=== PATIENT | female | born 1980 | race Caucasian/White ===

== ENCOUNTER 2017-06-10 19:24 | Inpatient (IN) | payer BC, OTHER, MEDICAID ==
[~2017-06-10] VITALS: Ht 170.2 cm; Wt 75.3 kg
[2017-06-10 19:28] VITALS: BP 170/92
[2017-06-10] MEDS ORDERED: SYNTHROID100 MC1 PO (19:33)
[2017-06-10] MEDS ORDERED: LISINOPRIL10 MG PO (19:33)
[2017-06-10 19:43] VITALS: BP 170/92
[2017-06-10 19:56] LABS: ABSOLUTE LYMPHOCYTES 1.9 thou/uL (0.8-5.3); ABSOLUTE MONOCYTES 0.6 thou/uL (0.0-1.2); ABSOLUTE NEUTROPHILS 5.7 thou/uL (1.6-8.1); BASOPHILS 0.5 %; EOSINOPHILS 0.1 %; HEMOGLOBIN 12.8 gm/dL (12.0-15.0); LYMPHOCYTES 23.1 %; MCH 30.8 pg (26.0-34.0); MCHC 33.6 g/dL (28.0-37.0); MCV 91.6 fL (80.0-100.0); MONOCYTES 6.8 %; MPV 10.1 fl. (7.2-11.1); NUCLEATED RBCS 0 /100WBC; PLATELET COUNT* 199 thou/uL (150-400); POLYS 69.5 %; RBC 4.15 mil/uL (4.20-5.00); RDW-CV 12.7 % (10.5-14.5); URINE BLOOD 3+ (Negative); URINE CLARITY CLEAR; URINE COLOR ORANGE; URINE LEUKOCYTES-REFLEX NEGATIVE (Negative); WBC 8.1 thou/uL (4.0-11.0)
[2017-06-10 20:04] LABS: CALCIUM 8.3 mg/dL (8.5-10.1); CREATININE 1.2 mg/dL (0.6-1.3); URINE NITRITE-REFLEX POSITIVE (Negative)
[2017-06-10 20:07] LABS: POTASSIUM 2.9 mmol/L (3.5-5.1); SSA (PROTEIN CONFIRMATORY) NEGATIVE (Negative); URINE SPECIFIC GRAVITY 1.023 (1.005-1.030)
[2017-06-10 20:08] LABS: ACETEST (KETONE CONFIRMATORY) Negative (Negative); ICTOTEST (BILI CONFIRMATORY) Negative (Negative); URINE REDUCING SUBSTANCE NEGATIVE (Negative)
[2017-06-10 20:09] LABS: ALBUMIN 3.9 g/dL (3.4-5.0); TOTAL BILIRUBIN 0.5 mg/dL (<0.1-1.0); TOTAL PROTEIN 6.8 g/dL (6.4-8.2)
[2017-06-10 20:10] LABS: CALCIUM OXALATE 0-3 Few /LPF (None Seen); CASTS None Seen /LPF (None Seen); MUCUS 4-6 Moderate strn/LPF (None Seen); SQUAMOUS >10 Many /LPF (0-3); URINE RBC >20 Many /HPF (0-2)
[2017-06-10 20:11] LABS: BACTERIA-REFLEX 1-9 Few /HPF (None Seen)
[2017-06-10 21:25] LABS: URINE BILIRUBIN NEGATIVE (Negative); URINE BLOOD 2+ (Negative); URINE CLARITY CLEAR; URINE COLOR YELLOW; URINE GLUCOSE-RANDOM NEGATIVE (Negative); URINE KETONES TRACE (Negative); URINE LEUKOCYTES-REFLEX TRACE (Negative); URINE PROTEIN TRACE (Negative)
[2017-06-10 21:26] LABS: URINE NITRITE-REFLEX POSITIVE (Negative)
[2017-06-10 21:37] LABS: BACTERIA-REFLEX >30 Many /HPF (None Seen); CASTS None Seen /LPF (None Seen); MUCUS 0-3 Light strn/LPF (None Seen); SQUAMOUS 0-3 Few /LPF (0-3); TRANSITIONAL EPITHEL CELL 0-3 Few /LPF (None Seen); URINE WBC-REFLEX 6-15 Few /HPF (0-5); WBC CLUMPS Few (None Seen)
[2017-06-10 21:44] LABS: CRYSTALS None Seen /LPF (None Seen)
[2017-06-10 22:30] VITALS: BP 163/98
[2017-06-10 23:13] VITALS: BP 158/93
[2017-06-11 08:25] LABS: URINE BILIRUBIN 2+ (Negative)
[2017-06-11 08:54] VITALS: BP 141/92
[2017-06-11 12:22] VITALS: BP 149/98
[2017-06-11 15:24] VITALS: BP 154/85
[2017-06-11 15:30] VITALS: BP 126/83
[2017-06-11 18:27] VITALS: BP 126/83
[2017-06-11] MEDS ORDERED: CIPRO500 MG PO (18:33)
[2017-06-11] MEDS ORDERED: HYDROCODONE-AP1 EAC6 PO (18:34)
[2017-06-11] MEDS ORDERED: LEVSIN-SL0.125 MG SUBLING (18:35)
[2017-06-11] MEDS ORDERED: PHENAZOPYRIDIN200 M2 PO (18:35)
--- NOTE | 2017-06-15 15:49 | OP ---
[address] [address] OPERATIVE REPORT Name: ANTHONY HUGHES Room: [address] IN M.R.#: [id number] Admission: 06/10/17 Attend Phys: Thien Richmond, Discharge: 06/11/17 Date of : 84 Report #: [id number] THIS REPORT FOR: //name// CC: [facility] physician/PCP Thien Richmond DATE OF SERVICE: 06/11/2017 PREOPERATIVE DIAGNOSIS: Right ureterovesical junction stone. POSTOPERATIVE DIAGNOSIS: Right ureterovesical junction stone. PROCEDURES: Cystourethroscopy, right retrograde pyelogram, right ureteroscopy, laser lithotripsy, basket extraction of stone fragments and right ureteral stent placement (6-Afghan x 26 cm). SURGEON: Queta Hernandez M.D. ANESTHESIA: General. ESTIMATED BLOOD LOSS: None. COMPLICATIONS: None. SPECIMEN: Stone. INDICATION FOR PROCEDURE: The patient is a 37-year-old female with history of stones, who presented with right flank pain. CT scan revealed a 6 mm right UVJ stone. UA was also questionable for UTI. Initially, we had discussed just stenting her, but a prelim culture came back no growth and therefore, we discussed if I did not see any purulence. Given the very distal nature of the stone, I would attempt to treat it if safe. Risks of procedure discussed including but not limited to infection, bleeding, injury to the urethra, bladder, ureters, need for secondary procedures, stent pain, cardiopulmonary complications. She voiced understanding and wished to proceed. DESCRIPTION OF PROCEDURE: After informed consent was obtained, the patient was taken back to the operating suite and placed supine. After induction of general anesthesia, she was placed in dorsal lithotomy position, genitalia prepped and draped in standard fashion. Rigid cystoscopy was performed. Bladder mucosa was normal. She had a mild cystocele. Right ureteral orifice was cannulated with a cone tipped catheter. A retrograde was performed and the radiopaque stone was seen just above the UVJ and showed a filling defect with proximal hydroureteronephrosis behind this. Sensor wire was threaded into the ureter past the stone without difficulty and [place] [address] OPERATIVE REPORT Name: ANTHONY HUGHES Room: [address] IN [facility]#: [id number] Admission: 06/10/17 Attend Phys: Thien Richmond, Discharge: 06/11/17 Date of : 84 Report #: [id number] ureteroscope was then advanced into the UO and the stone was easily encountered just above the UVJ. There was some significant edema surrounding the stone. The holmium laser was used to break up the stone into small fragments. These were basketed and deposited in the bladder with a 0 tip nitinol basket. Once all stone fragments had been cleared, the scope was backed out using dual lumen catheter. Retrograde was again performed. There was no extravasation. There was significant hydroureteronephrosis above the level of the stone with some tortuosity of the proximal ureter which straightened out with the wire. The wire was backloaded through the cystoscope and a 6-Afghan x 26-cm double-J stent was threaded over the wire. Good curl was seen within the renal pelvis and good curl was seen within the bladder. All stone fragments were drained out of the bladder. Scope was removed. A 5 mL of lidocaine jelly were placed per urethra and a 60 mg B and O suppository was placed per rectum for postoperative discomfort. She was awoken, extubated and taken to recovery in satisfactory condition. She will be admitted back to the floor and can probably be dismissed home later this afternoon if she remains afebrile and her pain is under control. Probably we will consider sending her home on some empiric Cipro until her final culture results are back. Of note, there was no purulence at all behind the stone, everything was clear. <ELECTRONICALLY SIGNED> By: Queta Hernandez MD 06/15/17 1549 1426 1444Queta Hernandez MD /nt
[2017-06-21 18:07] LABS: STONE CA OXALATE DIHYDRATE 30 % (()); STONE CA OXALATE MONOHYDRATE 60 % (()); STONE CALCIUM PHOSPHATE 10 % (()); STONE COLOR Tan (())
--- NOTE | 2017-07-21 12:45 | D ---
[address] [address] DISCHARGE SUMMARY Name: ANTHONY HUGHES Room: [address] IN M.R.#: [id number] Admission: 06/10/17 Attend Phys: Thien Richmond, Discharge: 06/11/17 Date of : 84 Report #: [id number] THIS REPORT FOR: //name// CC: Tera Richmond DATE OF SERVICE: 06/11/2017 HISTORY OF PRESENT ILLNESS: This pleasant patient was admitted to the hospital with intractable pain due to ureteral colic with vomiting and was found to have a possible UTI. She was seen in consultation by Urology and underwent stent placement as well as lithotripsy and laser stone extraction with basket. Urine was cultured and she was sent back to the floor in stable condition, was able to eat and her pain was well controlled postoperatively. She was discharged home to see Urology this next week. We will continue Cipro 500 mg b.i.d. for 10 days. We will see her primary care doctor in one week. DISCHARGE DIET: Heart healthy, 2 gram sodium. MEDICATIONS: For discharge meds, please see medication reconciliation. CONSULTATIONS: With Urology. discharge DIAGNOSIS 1. Intractable pain secondary to ureteral colic 2. UTI <ELECTRONICALLY SIGNED> By: Thien Richmond MD 07/21/17 1245 2024 2045ThMD shelly Fan
== END 2017-06-11 19:00 | disposition home or self-care (01) | DRG 669 ==
LOC: M.ERS 19:24 → M.TBA-ER 21:12 → M.ERS 21:12 → M.ORTHSURG 21:39 → M.TBA-ER 21:39 → M.ORTHSURG 23:01
PROVIDERS: Nurse Practitioner Family; Urology; ADMIT Family Medicine
DX: N20.1 Calculus of ureter (principal); N39.0 Urinary tract infection, site not specified; I10 Essential (primary) hypertension; E87.6 Hypokalemia; E03.9 Hypothyroidism, unspecified; Z98.891 History of uterine scar from previous surgery; Z98.84 Bariatric surgery status; Z90.49 Acquired absence of other specified parts of digestive tract; Z79.899 Other long term (current) drug therapy; Z88.0 Allergy status to penicillin

== ENCOUNTER 2017-07-11 22:36 | Emergency (ER) | payer BC, OTHER, MEDICAID ==
[~2017-07-11] VITALS: Ht 170.2 cm; Wt 77.1 kg
[~2017-07-11 22:36] MED LIST: CIPRO500 MG PO; HYDROCODONE-AP1 EAC6 PO; LEVSIN-SL0.125 MG SUBLING; LISINOPRIL10 MG PO; PHENAZOPYRIDIN200 M2 PO; SYNTHROID100 MC1 PO
[2017-07-11 23:13] LABS: URINE BILIRUBIN NEGATIVE (Negative); URINE BLOOD 2+ (Negative); URINE CLARITY CLEAR; URINE COLOR YELLOW; URINE GLUCOSE-RANDOM NEGATIVE (Negative); URINE KETONES NEGATIVE (Negative); URINE NITRITE-REFLEX NEGATIVE (Negative); URINE PROTEIN 2+ (Negative)
[2017-07-11 23:15] LABS: URINE LEUKOCYTES-REFLEX 2+ (Negative)
[2017-07-11 23:42] LABS: INFLUENZA A ANTIGEN None Detected (None Detect); INFLUENZA B ANTIGEN None Detected (None Detect)
[2017-07-11 23:48] LABS: SQUAMOUS 0-3 Few /LPF (0-3)
[2017-07-11 23:50] LABS: CASTS None Seen /LPF (None Seen); CRYSTALS None Seen /LPF (None Seen); URINE WBC-REFLEX >25 Many /HPF (0-5)
[2017-07-11] MEDS ORDERED: ZOFRAN4 MG PO (23:55)
[2017-07-11] MEDS ORDERED: CIPROFLOXACIN500 M1 PO (23:55)
[2017-07-11] MEDS ORDERED: HYDROCODON-ACE1 EAC7 PO (23:55)
[2017-07-12] VITALS: BP 121/76
== END 2017-07-12 00:02 | disposition home or self-care (01) ==
LOC: M.ERS 22:36
PROVIDERS: Emergency Medicine
DX: N39.0 Urinary tract infection, site not specified (principal); I10 Essential (primary) hypertension; E03.9 Hypothyroidism, unspecified; Z88.0 Allergy status to penicillin

== ENCOUNTER 2017-10-31 11:31 | Inpatient (IN) | payer BC, OTHER, MEDICAID ==
[~2017-10-31] VITALS: Ht 170.2 cm; Wt 79.1 kg
[~2017-10-31 11:31] MED LIST changes: +CIPROFLOXACIN500 M1 PO; +HYDROCODON-ACE1 EAC7 PO; +ZOFRAN4 MG PO
[2017-10-31 11:44] VITALS: BP 157/102
[2017-10-31] MEDS ORDERED: CYMBALTA60 MG PO (11:46)
[2017-10-31] MEDS ORDERED: IBUPROFEN 800800 M1 PO (11:47)
[2017-10-31 12:17] LABS: URINE BILIRUBIN NEGATIVE (Negative); URINE BLOOD 2+ (Negative); URINE CLARITY CLEAR; URINE COLOR YELLOW; URINE GLUCOSE-RANDOM NEGATIVE (Negative); URINE KETONES NEGATIVE (Negative); URINE LEUKOCYTES-REFLEX NEGATIVE (Negative); URINE NITRITE-REFLEX NEGATIVE (Negative); URINE PROTEIN 1+ (Negative); URINE SPECIFIC GRAVITY 1.025 (1.005-1.030); URINE UROBILINOGEN 0.2 E.U./dl (0.2-1.0)
[2017-10-31 12:29] LABS: SQUAMOUS >10 Many /LPF (0-3); URINE RBC 3-10 Few /HPF (0-2); URINE WBC-REFLEX 0-5 Rare /HPF (0-5)
[2017-10-31 12:34] LABS: CASTS None Seen /LPF (None Seen); CRYSTALS None Seen /LPF (None Seen); MUCUS 0-3 Light strn/LPF (None Seen)
[2017-10-31 15:00] LABS: ABSOLUTE LYMPHOCYTES 1.3 thou/uL (0.8-5.3); ABSOLUTE MONOCYTES 0.4 thou/uL (0.0-1.2); ABSOLUTE NEUTROPHILS 4.9 thou/uL (1.6-8.1); BASOPHILS 0.4 %; EOSINOPHILS 0.1 %; HEMATOCRIT 37.4 % (37.0-47.0); HEMOGLOBIN 11.9 gm/dL (12.0-15.0); LYMPHOCYTES 19.8 %; MCH 27.7 pg (26.0-34.0); MCHC 31.9 g/dL (28.0-37.0); MCV 86.9 fL (80.0-100.0); MONOCYTES 6.4 %; MPV 9.5 fl. (7.2-11.1); NUCLEATED RBCS 0 /100WBC; PLATELET COUNT* 199 thou/uL (150-400); POLYS 73.3 %; RDW-CV 13.6 % (10.5-14.5); WBC 6.6 thou/uL (4.0-11.0)
[2017-10-31 15:05] LABS: CREATININE 1.1 mg/dL (0.6-1.3); POTASSIUM 3.3 mmol/L (3.5-5.1)
[2017-10-31 15:10] LABS: ALBUMIN 3.5 g/dL (3.4-5.0); TOTAL BILIRUBIN 0.3 mg/dL (<0.1-1.0); TOTAL PROTEIN 6.9 g/dL (6.4-8.2)
[2017-10-31 15:30] VITALS: BP 147/96
[2017-10-31 15:39] VITALS: BP 139/94
[2017-11-01] VITALS: BP 112/73
[2017-11-01 02:38] VITALS: BP 112/73
[2017-11-01 04:53] LABS: HEMATOCRIT 35.7 % (37.0-47.0); HEMOGLOBIN 11.4 gm/dL (12.0-15.0); MCH 27.8 pg (26.0-34.0); MCHC 32.1 g/dL (28.0-37.0); MCV 86.7 fL (80.0-100.0); MPV 10.6 fl. (7.2-11.1); RBC 4.12 mil/uL (4.20-5.00); RDW-CV 13.5 % (10.5-14.5); WBC 7.3 thou/uL (4.0-11.0)
[2017-11-01 05:04] LABS: CALCIUM 8.2 mg/dL (8.5-10.1); CREATININE 1.2 mg/dL (0.6-1.3); MAGNESIUM 1.9 mg/dL (1.8-2.4)
[2017-11-01 05:16] LABS: POTASSIUM 5.6 mmol/L (3.5-5.1)
[2017-11-01 08:45] VITALS: BP 112/69
--- NOTE | 2017-11-01 16:26 | EKG ---
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 11/01/17 1626 1411 1411 Minh Pacheco MD, FACC /EPI
[2017-11-01 17:47] VITALS: BP 112/69
[2017-11-01 18:00] VITALS: BP 137/94
[2017-11-01] MEDS ORDERED: PERCOCET PO (18:31)
[2017-11-01] MEDS ORDERED: LEVSIN0.125 MG PO (18:32)
[2017-11-01] MEDS ORDERED: PHENAZOPYRIDIN200 M2 PO (18:32)
[2017-11-08 18:07] LABS: STONE CA OXALATE MONOHYDRATE 92 % (()); STONE COLOR Brown (()); STONE COMMENT Note: (())
--- NOTE | 2017-11-10 11:31 | OP ---
[address] [address] OPERATIVE REPORT Name: SAULANTHONY Room: [address] IN M.R.#: [id number] Admission: 10/31/17 Attend Phys: Amanda Rosales MD Discharge: 11/01/17 Date of : 84 Report #: [id number] THIS REPORT FOR: //name// CC: [facility] Amanda Wright DATE OF SERVICE: 11/01/2017 PREOPERATIVE DIAGNOSIS: Right proximal ureteral stone and right renal stones. POSTOPERATIVE DIAGNOSIS: Right distal ureteral stone and right renal stones. PROCEDURE: Cystourethroscopy, right retrograde pyelogram, right ureteroscopy, laser lithotripsy, basket extraction of stone fragments and right ureteral stent placement (right 6 x 26). SURGEON: Queta Hernandez MD ANESTHESIA: General. ESTIMATED BLOOD LOSS: None. COMPLICATIONS: None. SPECIMENS: Stone. INDICATION FOR PROCEDURE: The patient is a 37-year-old female with history of recurrent stones. She presented with a 7 mm right proximal stone as well as some very small right renal nonobstructing stones. She also has left nonobstructing stones. She has a history of gastric bypass. Options were discussed and she opted for ureteroscopy and laser lithotripsy. Risks of procedure were discussed including but not limited to infection, bleeding, injury to the urethra, bladder, ureter, need for secondary procedures, stenting, cardiopulmonary complications. She voiced understanding and wished to proceed. DESCRIPTION OF PROCEDURE: After informed consent was obtained, the patient was taken back to the operative suite and placed supine. After induction of general anesthesia, she was placed in dorsal lithotomy position, genitalia prepped and draped in standard fashion. Rigid cystoscopy was performed. Bladder mucosa appeared normal. Right retrograde pyelogram was performed and there was a radiopaque stone visible in the distal ureter. The stone had migrated. This revealed proximal hydroureteronephrosis. A sensor wire was threaded past the stone without difficulty. The rigid ureteroscope was introduced into the UO and the stone was encountered in the distal ureter. It was very hard and may be a monohydrate stone. Holmium laser was used to break [place] [address] OPERATIVE REPORT Name: ANTHONY HUGHES Room: [address] IN [facility]#: [id number] Admission: 10/31/17 Attend Phys: Amanda Rosales MD Discharge: 11/01/17 Date of : 84 Report #: [id number] basketed with the 0 tip nitinol basket and placed in the bladder. Once all stone fragments had been removed, a ZIPwire was also threaded up into the kidney through the scope and the scope was removed. I attempted to thread an 02/13 access sheath over one of the wires, but it would not pass the distal ureter and therefore, I decided not to try and go after anything in the kidney. I reintroduced the rigid ureteroscope as it seems that the ureter looked pretty patent for the sheath to pass, so I wanted to see if there is a stricture above the area where I tried to pass the scope. The rigid ureteroscope was reintroduced and there was no stricture in the more proximal ureter. However, from the sheath there did appear to be a very tiny denuded area in the distal ureter. I did inject some contrast here and there was a little bit of extravasation. I looked at her CAT scan and actually her stones looked very small, so decided not to go any further since the sheath would not pass. I backloaded the wire through the cystoscope and a 6-Emirati x 26 cm double-J stent was threaded over the wire. Good curl was seen within the renal pelvis and good curl was seen within the bladder. The bladder was drained of any stone material and the scope was removed. A 5 mL of lidocaine jelly were placed per urethra for local anesthesia and a 60 mg B and O suppository was placed per rectum for postop discomfort. She was awoken, extubated and taken to recovery in satisfactory condition. She can be dismissed home later tonight if her pain is controlled and follow up with me in 2 weeks for KUB and stent removal. <ELECTRONICALLY SIGNED> By: Queta Hernandez MD 11/10/17 1131 1715 1906Queta Hernandez MD /nt
== END 2017-11-01 19:59 | disposition home or self-care (01) | DRG 669 ==
LOC: M.ERS 11:31 → M.TBA-ER 14:41 → M.3W 14:41
PROVIDERS: Personal Emergency Response Attendant; ADMIT Internal Medicine
PROC: BT1D1ZZ Fluoroscopy of Right Kidney, Ureter and Bladder using Low Osmolar Contrast (ICD-10-PCS; principal; 2017-11-01)
PROC: 0T768DZ Dilation of Right Ureter with Intraluminal Device, Via Natural or Artificial Opening Endoscopic (ICD-10-PCS; principal; 2017-11-01)
PROC: 0TC68ZZ Extirpation of Matter from Right Ureter, Via Natural or Artificial Opening Endoscopic (ICD-10-PCS; principal; 2017-11-01)
DX: N13.2 Hydronephrosis with renal and ureteral calculous obstruction (principal); I10 Essential (primary) hypertension; D64.9 Anemia, unspecified; E03.9 Hypothyroidism, unspecified; F32.9 Major depressive disorder, single episode, unspecified; Z98.84 Bariatric surgery status; Z88.0 Allergy status to penicillin; Z79.2 Long term (current) use of antibiotics; Z90.49 Acquired absence of other specified parts of digestive tract

== ENCOUNTER 2018-06-05 18:43 | Inpatient (IN) | payer BC ==
[~2018-06-05] VITALS: Ht 170.2 cm
--- NOTE | ~2018-06-05 | OP ---
[address] [address] OPERATIVE REPORT Name: SAULANTHONY Room: [address] IN M.R.#: [id number] Admission: 06/05/18 Attend Phys: Elodia Mayes Discharge: Date of : 84 Report #: [id number] THIS REPORT FOR: //name// CC: [facility] Tyrone Mcintyre DATE OF SERVICE: 06/06/2018 PREOPERATIVE DIAGNOSIS: Right ureteral obstruction with colic. POSTOPERATIVE DIAGNOSIS: Right ureteral obstruction with colic. PROCEDURE PERFORMED: Cystoscopy, right retrograde pyelogram, right ureteroscopy with laser fragmentation, basketing of stones and JJ stent placement. SURGEON: Arturo Carlson MD. COMPLICATIONS: None. DRAINS: A 4.8 x 26 cm right ureteral stent. SPECIMEN: Stone fragments to pathology. ANESTHESIA: General. BLOOD LOSS: Negligible. COMPLICATIONS: None. STATEMENT OF MEDICAL INDICATION: This is a 38-year-old female who presented with right-sided flank pain. She has had multiple prior stones, required both lithotripsy and ureteroscopy in the past. She presents now with persistent right-sided flank pain, has a 6 mm stone in the mid ureter. She has been apprised the options for management and is elected to proceed with ureteroscopic stone manipulation. She does understand that she did have a few white cells in her urine that this could worsen the UTI to do ureteroscopy and that she may only have a stent placed. Additionally, discussed risks of bleeding, infection, injury to the urinary tract, residual stone fragments, need for further procedures or injury to adjacent structures. DESCRIPTION OF PROCEDURE: Following informed consent, the patient was taken to the operating room and placed under general anesthesia. She was prepped and draped in sterile fashion in dorsal lithotomy position. Cystoscopy was carried out. The bladder was normal in appearance. A right retrograde pyelogram revealed obstruction in the distal third ureter [place] [address] OPERATIVE REPORT Name: ANTHONY HUGHES Room: [address] IN [facility].#: [id number] Admission: 06/05/18 Attend Phys: Elodia Mayes Discharge: Date of : 84 Report #: [id number] iliac vessels. The Pollack catheter would not bypass the stone as it was impacted at this level. Therefore, a floppy tipped guidewire was advanced beyond this and no significant hydronephrotic drip was obtained. Next, the semirigid ureteroscope was inserted alongside the wire. The stone was visualized and broken into multiple small pieces, which were engaged in a basket, ultimately removed and submitted for analysis. Following this, the cystoscope was backloaded over the wire and a 4.8 x 26 cm stent was placed with a coil in the renal pelvis and a coil in the bladder. The patient was given a Toradol injection, Uro-Jet per urethra, B and O suppository, returned to recovery room in satisfactory condition. Postop plan will be to return to the office in 1 week for cystoscopy and stent removal. By: 1155 1211Wijung Carlson MD /nt
[~2018-06-05 18:43] MED LIST changes: +CYMBALTA60 MG PO; +IBUPROFEN 800800 M1 PO; +LEVSIN0.125 MG PO; +PERCOCET PO
[2018-06-05 18:53] VITALS: BP 139/91
[2018-06-05] MEDS ORDERED: POTASSIUM600 MG PO (18:56)
[2018-06-05 19:07] LABS: HEMATOCRIT 34.7 % (37.0-47.0); HEMOGLOBIN 10.8 gm/dL (12.0-15.0); MCH 23.8 pg (26.0-34.0); MCHC 31.1 g/dL (28.0-37.0); RBC 4.54 mil/uL (4.20-5.00); RDW-CV 15.9 % (10.5-14.5)
[2018-06-05 19:09] LABS: ABSOLUTE BASOPHILS 0.1 thou/uL (0.0-0.2); ABSOLUTE MONOCYTES 0.5 thou/uL (0.0-1.2); ABSOLUTE NEUTROPHILS 7.8 thou/uL (1.6-8.1); BASOPHILS 0.5 %; EOSINOPHILS 0.1 %; LYMPHOCYTES 19.5 %; MCV 76.5 fL (80.0-100.0); MONOCYTES 4.7 %; MPV 9.3 fl. (7.2-11.1); NUCLEATED RBCS 0 /100WBC; PLATELET COUNT* 302 thou/uL (150-400); POLYS 75.2 %; WBC 10.3 thou/uL (4.0-11.0)
[2018-06-05 19:09] LABS: URINE BILIRUBIN NEGATIVE (Negative); URINE BLOOD 3+ (Negative); URINE CLARITY CLOUDY; URINE COLOR YELLOW; URINE GLUCOSE-RANDOM NEGATIVE (Negative); URINE KETONES NEGATIVE (Negative); URINE LEUKOCYTES-REFLEX 2+ (Negative); URINE NITRITE-REFLEX POSITIVE (Negative); URINE PROTEIN 2+ (Negative); URINE SPECIFIC GRAVITY >= 1.030 (1.005-1.030); URINE UROBILINOGEN 0.2 E.U./dl (0.2-1.0)
[2018-06-05 19:16] LABS: BACTERIA-REFLEX >30 Many /HPF (None Seen); SQUAMOUS 4-10 Moderate /LPF (0-3); URINE WBC-REFLEX >25 Many /HPF (0-5); WBC CLUMPS Few (None Seen)
[2018-06-05 19:17] LABS: URINE RBC 3-10 Few /HPF (0-2)
[2018-06-05 19:18] LABS: CASTS None Seen /LPF (None Seen); CRYSTALS None Seen /LPF (None Seen); MUCUS 0-3 Light strn/LPF (None Seen)
[2018-06-05 19:22] LABS: ALBUMIN 3.6 g/dL (3.4-5.0); CALCIUM 8.9 mg/dL (8.5-10.1); CREATININE 0.9 mg/dL (0.6-1.3); POTASSIUM 3.2 mmol/L (3.5-5.1); TOTAL BILIRUBIN 0.5 mg/dL (<0.1-1.0); TOTAL PROTEIN 7.2 g/dL (6.4-8.2)
[2018-06-05 21:35] VITALS: BP 140/88
[2018-06-05 21:37] VITALS: BP 142/87
[2018-06-05] MEDS ORDERED: TIROSINT125 MCG PO (22:14)
[2018-06-06 03:33] VITALS: BP 97/55
[2018-06-06 05:51] LABS: HEMATOCRIT 30.5 % (37.0-47.0); HEMOGLOBIN 9.4 gm/dL (12.0-15.0); MCH 24.1 pg (26.0-34.0); MCHC 30.9 g/dL (28.0-37.0); MPV 10.2 fl. (7.2-11.1); NUCLEATED RBCS 0 /100WBC; RBC 3.91 mil/uL (4.20-5.00); RDW-CV 15.9 % (10.5-14.5); WBC 9.2 thou/uL (4.0-11.0)
[2018-06-06 06:00] LABS: ALBUMIN 2.6 g/dL (3.4-5.0); CALCIUM 7.8 mg/dL (8.5-10.1); CREATININE 0.9 mg/dL (0.6-1.3); POTASSIUM 3.7 mmol/L (3.5-5.1); TOTAL BILIRUBIN 0.3 mg/dL (<0.1-1.0); TOTAL PROTEIN 5.4 g/dL (6.4-8.2)
[2018-06-06 06:02] LABS: PLATELET COUNT* 202 thou/uL (150-400)
[2018-06-06 06:09] VITALS: BP 139/88
[2018-06-06 06:59] LABS: ABSOLUTE LYMPHOCYTES 0.3 thou/uL (0.8-5.3); ABSOLUTE MONOCYTES 0.3 thou/uL (0.0-1.2); ABSOLUTE NEUTROPHILS 8.6 thou/uL (1.6-8.1)
[2018-06-06 07:00] LABS: ANISOCYTOSIS 1+; PLATELET ESTIMATE ADEQUATE; POIKILOCYTOSIS 1+
[2018-06-06 08:30] VITALS: BP 131/84
[2018-06-06 09:38] VITALS: BP 131/84
[2018-06-06] MEDS ORDERED: CARVEDILOL3.125 MG PO (11:05)
[2018-06-06] MEDS ORDERED: FLOMAX0.4 MG PO (11:05)
[2018-06-06] MEDS ORDERED: KEFLEX500 M1 PO (11:05)
[2018-06-06] MEDS ORDERED: PERCOCET 10-321 EACH PO (11:08)
[2018-06-06 14:09] VITALS: BP 131/84
[2018-06-06] MEDS ORDERED: BACTRIM DS TAB1 EACH PO (14:21)
[2018-06-06] MEDS ORDERED: NORCO 5-325 TA1 EACH PO (14:21)
[2018-06-06] MEDS ORDERED: LEVSIN-SL0.125 MG SUBLING (14:22)
[2018-06-06] MEDS ORDERED: PHENAZOPYRIDIN200 M2 PO (14:23)
--- NOTE | 2018-06-06 16:05 | EKG ---
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1980 Requested By: Arturo Mcintyre Order Number: [id number] Phoebe MD: Jaron Tomlinson Measurements Intervals [place] Rate: 128 P: 20 SD: 144 QRS: 23 QRSD: 74 T: 44 QT: 304 QTc: 444 Interpretive Statements Sinus tachycardia Low voltage, precordial leads Borderline T wave abnormalities Compared to ECG 11/01/2017 14:11:37 Low QRS voltage now present T-wave abnormality now present Electronically Signed On 06-06-2018 16:05:25 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
== END 2018-06-06 18:00 | disposition home or self-care (01) | DRG 660 ==
LOC: M.ERS 18:43 → M.TBA-ER 20:33 → M.ORTHSURG 20:33
PROVIDERS: Nurse Practitioner Family; ADMIT Internal Medicine
PROC: 0T768DZ Dilation of Right Ureter with Intraluminal Device, Via Natural or Artificial Opening Endoscopic (ICD-10-PCS; principal; 2018-06-06)
PROC: BT1D1ZZ Fluoroscopy of Right Kidney, Ureter and Bladder using Low Osmolar Contrast (ICD-10-PCS; principal; 2018-06-06)
PROC: 0TC68ZZ Extirpation of Matter from Right Ureter, Via Natural or Artificial Opening Endoscopic (ICD-10-PCS; principal; 2018-06-06)
DX: N13.6 Pyonephrosis (principal); N30.01 Acute cystitis with hematuria; I10 Essential (primary) hypertension; E03.9 Hypothyroidism, unspecified; F32.9 Major depressive disorder, single episode, unspecified; Z98.891 History of uterine scar from previous surgery; Z98.84 Bariatric surgery status; Z87.442 Personal history of urinary calculi; Z79.899 Other long term (current) drug therapy; Z88.0 Allergy status to penicillin

== ENCOUNTER 2018-10-10 14:58 | Inpatient (IN) | payer BC, OTHER ==
[~2018-10-10] VITALS: Ht 170.2 cm; Wt 88.5 kg
--- NOTE | ~2018-10-10 | OP ---
[facility] [address] [place] [address] OPERATIVE REPORT Name: ANTHONY HUGHES Room: [address] IN M.R.#: [id number] Admission: 10/10/18 Attend Phys: Elodia Mayes Discharge: 10/12/18 Date of : 84 Report #: [id number] THIS REPORT FOR: //name// CC: [facility] Tyrone Mcintyre DATE OF SERVICE: 10/12/2018 PREOPERATIVE DIAGNOSIS: Left flank pain and left nephrolithiasis. POSTOPERATIVE DIAGNOSIS: Left flank pain and left nephrolithiasis. PROCEDURE: Cystourethroscopy, left retrograde pyelogram, left ureteroscopy, laser lithotripsy, basket extraction of stone fragments, and left ureteral stent placement (6 x 28). SURGEON: Queta Hernandez M.D. ANESTHESIA: General. ESTIMATED BLOOD LOSS: None. COMPLICATIONS: None. SPECIMEN: Stone. INDICATIONS FOR PROCEDURE: The patient is a patient of mine, who presented to [place] with left flank pain. She has a long history of stones. CT scan was done, which showed no hydro or ureteral stone, but she does have bilateral nonobstructing nephrolithiasis. The patient persisted in having left flank pain, which she reported felt just like every other stone she has had and no other source of pain was identified. I reviewed her scan. I thought there was a questionable tiny fragment in the left mid ureter that was missed, but this also could be a ____ in the gonadal vein. Therefore, we discussed proceeding with left retrograde pyelogram, ureteroscopy and laser lithotripsy. She was actually scheduled for next week anyway to clear out both kidneys ureteroscopically. She does understand this may or may not address to her pain. Risks of procedure were discussed including, not limited to infection, bleeding, injury to the urethra, bladder or ureters, need for secondary procedures, stent pain, cardiopulmonary complications. She voiced understanding and wished to proceed. DESCRIPTION OF PROCEDURE: After informed consent was obtained, the patient was taken back to the operating suite and placed supine. After induction of general anesthesia, she was placed in dorsal lithotomy position[place] [address] OPERATIVE REPORT Name: ANTHONY HUGHES Room: [address] IN [facility].#: [id number] Admission: 10/10/18 Attend Phys: Elodia Mayes Discharge: 10/12/18 Date of : 84 Report #: [id number] and draped in standard fashion. Rigid cystoscopy was performed. Bladder appeared normal with orthotopic UO's. Retrograde was performed on the left with a cone-tip catheter. This revealed a normal ureter without obvious filling defect, but she appeared to have some fullness of the renal pelvis and the calices. I would probably call this mild hydronephrosis. I introduced a sensor wire into the left kidney, drained the bladder and the stone was removed. I introduced a rigid ureteroscope alongside the wire to ensure no distal fragments and then completely clear all the way up to the mid ureter. A second wire was placed. Rigid scope was removed and an 02/13 ureteral access sheath was threaded over one of the wires to the level of the mid ureter without difficulty. The flexible scope was advanced through the sheath. No stone fragments were encountered in the length of the ureter. It is possible she could have passed the fragments. However, I did go ahead and addressed her renal stones. She had several renal stones as well as some Heath's plaques. Largest stone was in her lower pole, which was around 8 mm; and another stone that was completely impacted in the [id number] pole navjot. The entire navjot was full of stone with a small portion pocking out of the navjot. Again, it is possible that that navjot is not draining well from being exquisitely full of this impacted stone potentially back to the ____. These were all lasered with the holmium laser into dust-like fragments. The impacted stone was a little more difficult to laser due to the angle as well as the fact that it was adherent to the underlying tissues; but finally was able to knock this off, making this entirely laser. She had a couple other smaller stones, which were also basketed. Any larger fragments remaining were basketed with a 0 tip nitinol basket. The entire kidney was inspected for any large fragments and anything that remained as dust-like in size that should be passable. The scope was backed out along with the sheath and there was no injury from the sheath. Retrograde was again performed with a dual-lumen catheter to delineate the collecting system for stent placement. This revealed no extravasation. A 6 x 26 stent was threaded over the wire, but it appeared to be too short; therefore, it was externalized, wire was placed, and a 6-Arabic and 28 cm double-J stent was threaded over the wire. Good curl was seen in the renal pelvis under fluoroscopy and good curl was seen within the bladder. The bladder was then drained and the scope was removed. 5 mL of lidocaine jelly were placed per urethra and a 60 mg B and O suppository was placed per rectum for postoperative discomfort. She was awoken, extubated and taken to recovery in satisfactory condition. She can be dismissed home if she is feeling better and pain is controlled. By: [id number] Hernandez MD /karrie
[~2018-10-10 14:58] MED LIST changes: +BACTRIM DS TAB1 EACH PO; +CARVEDILOL3.125 MG PO; +FLOMAX0.4 MG PO; +KEFLEX500 M1 PO; +NORCO 5-325 TA1 EACH PO; +PERCOCET 10-321 EACH PO; +POTASSIUM600 MG PO; +TIROSINT125 MCG PO
[2018-10-10 15:08] VITALS: BP 118/86
[2018-10-10 15:32] LABS: ABSOLUTE LYMPHOCYTES 1.4 thou/uL (0.8-5.3); ABSOLUTE MONOCYTES 0.4 thou/uL (0.0-1.2); ABSOLUTE NEUTROPHILS 3.9 thou/uL (1.6-8.1); BASOPHILS 0.6 %; EOSINOPHILS 0.2 %; HEMATOCRIT 31.1 % (37.0-47.0); HEMOGLOBIN 9.6 gm/dL (12.0-15.0); LYMPHOCYTES 23.9 %; MCH 22.1 pg (26.0-34.0); MCHC 30.7 g/dL (28.0-37.0); MONOCYTES 6.6 %; MPV 8.8 fl. (7.2-11.1); NUCLEATED RBCS 0 /100WBC; PLATELET COUNT* 269 thou/uL (150-400); POLYS 68.7 %; RBC 4.32 mil/uL (4.20-5.00); RDW-CV 16.4 % (10.5-14.5); WBC 5.7 thou/uL (4.0-11.0)
[2018-10-10 15:38] LABS: CALCIUM 8.5 mg/dL (8.5-10.1); CREATININE 0.7 mg/dL (0.6-1.3); POTASSIUM 4.1 mmol/L (3.5-5.1)
[2018-10-10 15:43] LABS: ALBUMIN 3.4 g/dL (3.4-5.0); TOTAL BILIRUBIN 0.3 mg/dL (<0.1-1.0); TOTAL PROTEIN 6.8 g/dL (6.4-8.2)
[2018-10-10 16:00] LABS: URINE BILIRUBIN NEGATIVE (Negative); URINE BLOOD 1+ (Negative); URINE CLARITY CLEAR; URINE COLOR YELLOW; URINE GLUCOSE-RANDOM NEGATIVE (Negative); URINE KETONES NEGATIVE (Negative); URINE LEUKOCYTES-REFLEX TRACE (Negative); URINE NITRITE-REFLEX NEGATIVE (Negative); URINE PROTEIN NEGATIVE (Negative); URINE SPECIFIC GRAVITY 1.015 (1.005-1.030); URINE UROBILINOGEN 0.2 E.U./dl (0.2-1.0)
[2018-10-10 16:25] LABS: SQUAMOUS >10 Many /LPF (0-3)
[2018-10-10 16:26] LABS: MUCUS None Seen strn/LPF (None Seen)
[2018-10-10 16:27] LABS: BACTERIA-REFLEX 1-9 Few /HPF (None Seen); CASTS None Seen /LPF (None Seen); CRYSTALS None Seen /LPF (None Seen); URINE RBC 3-10 Few /HPF (0-2); URINE WBC-REFLEX 6-15 Few /HPF (0-5)
[2018-10-10 16:45] LABS: ANISOCYTOSIS 1+; MICROCYTES 1+; PLATELET ESTIMATE ADEQUATE
[2018-10-10 16:46] LABS: HYPOCHROMASIA 2+
[2018-10-10 18:45] VITALS: BP 130/85
--- NOTE | 2018-10-10 20:02 | NUR ---
PATIENT DISCHARGED/ ADMITTED TO ROOM 110
[2018-10-10 20:25] VITALS: BP 140/95
[2018-10-10 20:53] VITALS: BP 140/95
--- NOTE | 2018-10-11 06:17 | NUR ---
PATIENT ADMITTED AT 20:15. HAS FENTANYL Q2 AND IS REQUESTING IF PAIN IS AT 7/10 OR HIGHER. HX OF KIDNEY STONES. SHE SLEPT THROUGHOUT THE NIGHT. NPO SINCE MIDNIGHT
[2018-10-11 07:45] VITALS: BP 120/82
--- NOTE | 2018-10-11 12:23 | NUR ---
SW met with pt and pt to complete initial assessment, introduce self, and SW role. Pt young twin children present as well. Pt lives at home with spouse and is normally independent with all tasks. Pt not certain whether pt will decide to continue to stay in hospital or return home as pt will be returning to work. Pt hopeful to be able to have surgery and pain relief as soon as possible.
[2018-10-11 16:00] VITALS: BP 150/98
--- NOTE | 2018-10-11 18:32 | NUR ---
PATIENT PLEASANT AND COOPERATIVE THRU SHIFT. ALERT AND ORIENTED, CONVERSANT. SEE MAR FOR PAIN CONTROL. PATIENT STATES HAVING NAUSEA AFTER SUPPER MEAL THIS PM. ZOFRAN GIVEN. IV FLUIDS INFUSING S/O DIFF AT THIS TIME, IV CATH SITE RT AC, NOTED WNL. STATED SNYDER THIS AM, COOL WASHCLOTH APPLIED OVER EYES THIS AM, PATIENT STATES THIS HELPED. PATIENT PRIMARILY LOCATED IN [facility]. UROLOGY IN TO SEE PATIENT. PATIENT TO BE NPO AFTER MN FOR CYSTOSCOPE W/ POSSIBLE STENT PLACEMENT TOMORROW. PATIENT STATES VERBALLY OF UNDERSTANDING OF POC. URINE STRAINED, NO ?STOMES THIS SHIFT. BP ELEVATED THIS PM 150/98, HYDRALAZINE GIVEN, SEE MAR, BP 126/80 AT THIS TIME. ~TJRN
[2018-10-11 19:54] VITALS: BP 139/96
[2018-10-12 04:00] LABS: ABSOLUTE MONOCYTES 0.4 thou/uL (0.0-1.2); ABSOLUTE NEUTROPHILS 2.7 thou/uL (1.6-8.1); BASOPHILS 0.6 %; EOSINOPHILS 0.3 %; HEMATOCRIT 27.7 % (37.0-47.0); HEMOGLOBIN 8.3 gm/dL (12.0-15.0); LYMPHOCYTES 38.8 %; MCH 21.6 pg (26.0-34.0); MONOCYTES 8.1 %; MPV 9.3 fl. (7.2-11.1); NUCLEATED RBCS 0 /100WBC; PLATELET COUNT* 209 thou/uL (150-400); POLYS 52.2 %; RBC 3.85 mil/uL (4.20-5.00); RDW-CV 16.3 % (10.5-14.5); WBC 5.2 thou/uL (4.0-11.0)
[2018-10-12 04:16] LABS: CALCIUM 8.1 mg/dL (8.5-10.1); CREATININE 0.6 mg/dL (0.6-1.3); POTASSIUM 4.1 mmol/L (3.5-5.1)
--- NOTE | 2018-10-12 04:49 | NUR ---
ANTHONY HAS HAD FLUIDS RUNNING ENTIRE SHIFT AND BEEN NPO SINCE MIDNIGHT. SHE WOKE UP AT 0430 REPORTING PAIN IN HER LOWER FLANK REGION. I GAVE HER ONE PERCOCET WITH A SMALL SIP OF WATER. SHE HAS BEEN RESTING THROUGHOUT SHIFT AND GOT UP TO THE RESTROOM TWICE OVERNIGHT. STILL MONITORING FOR ANY PASSING OF STONES THROUGH URINE, STILL NONE TO REPORT.
--- NOTE | 2018-10-12 04:54 | NUR ---
HELD LOVENOX DUE TO SCAN 10/12 AND POSSIBLE STENT PLACEMENT.
[2018-10-12 06:59] LABS: HYPOCHROMASIA 1+; MICROCYTES 1+
[2018-10-12 07:30] VITALS: BP 131/88
--- NOTE | 2018-10-12 11:30 | NUR ---
PATIENT OUT OF ROOM, ESCORTED TO SURGERY PER BED BY SURGERY STAFF. ~TJRN
--- NOTE | 2018-10-12 14:30 | NUR ---
RETURN TO ROOM FROM PACU PER BED W/ PACU NURSING. PATIENT NOTED RESTING W/ EYES CLOSED, RESPS EVEN AND UNLABORED. AWAKENS EASILY TO VERBAL/TOUCH STIM. STATES ABD DISCOMFORT AT 5/10 AT THIS TIME. REPORT REC'D FROM PACU NURSE. SCOP PATCH BEHIND LT EAR. PATIENT GIVEN 100MCG FENTANYL IN PACU PER REPORT. ~TJRN
[2018-10-12 16:00] VITALS: BP 139/86
[2018-10-12 17:45] VITALS: BP 139/86
[2018-10-12] MEDS ORDERED: PERCOCET PO (17:55)
[2018-10-12] MEDS ORDERED: LEVSIN0.125 MG SUBLING (17:58)
--- NOTE | 2018-10-12 18:45 | NUR ---
DISCHARGE TO HOME. DISCHARGE INSTRUCTIONS REVIEWED W/ PATIENT. PATIENT STATES SHE HAS AN APPT WITH HER PCP ON MONDAY AND UROLOGY APPT NEXT MONDAY. INSTRUCTED TO KEEP THOSE APPTS. PATIENT DENIES NAUSEA AT THIS TIME. SCOP PATCH ON. PATIENT INSTRUCTED PATCH IS GOOD FOR 72HRS. PATIENT STATES VERBALLY OF UNDERSTANDING OF INSTRUCTIONS. SCRIPTS GIVEN TO , STATES HE IS GOING TO FILL THEM PRIOR TO HER DEPARTURE. IV CATH SITE DISCONTINUED, TIP INTACT, COTTON BALL/TAPE APPLIED TO SITE. PATIENT ALERT AND ORIENTED. BELONGINGS GATHERED PER PATIENT, PATIENT DRESSES INDEP. ESCORTED OFF UNIT PER PEDIS WITH . PATIENT STATES SHE HAS A FAMILY MEMBER IN THIS HOSPITAL THAT SHE IS GOING TO SEE. NO OTHER NURSING NEEDS AT THIS TIME. ~TJRN
[2018-10-12 19:10] VITALS: BP 139/86
== END 2018-10-12 18:45 | disposition home or self-care (01) | DRG 660 ==
LOC: M.ERS 14:58 → M.TBA-ER 17:52 → M.ORTHSURG 17:52
PROVIDERS: Internal Medicine; Physician Assistant; ADMIT Internal Medicine
PROC: 0T778DZ Dilation of Left Ureter with Intraluminal Device, Via Natural or Artificial Opening Endoscopic (ICD-10-PCS; principal; 2018-10-12)
PROC: 0TC78ZZ Extirpation of Matter from Left Ureter, Via Natural or Artificial Opening Endoscopic (ICD-10-PCS; principal; 2018-10-12)
PROC: BT1F1ZZ Fluoroscopy of Left Kidney, Ureter and Bladder using Low Osmolar Contrast (ICD-10-PCS; principal; 2018-10-12)
DX: N20.0 Calculus of kidney (principal); N39.0 Urinary tract infection, site not specified; I10 Essential (primary) hypertension; E03.9 Hypothyroidism, unspecified; D50.9 Iron deficiency anemia, unspecified; F32.9 Major depressive disorder, single episode, unspecified; Z98.891 History of uterine scar from previous surgery; Z90.49 Acquired absence of other specified parts of digestive tract; Z98.84 Bariatric surgery status; Z79.2 Long term (current) use of antibiotics; Z79.1 Long term (current) use of non-steroidal anti-inflammatories (NSAID); Z79.899 Other long term (current) drug therapy; Z79.890 Hormone replacement therapy; Z88.0 Allergy status to penicillin

== ENCOUNTER → 2018-10-17 | Outpatient (CLI) | payer BC, OTHER ==
[~2018-10-17] MED LIST changes: +AZO URINARY P99.5 MG PO; +LEVSIN0.125 MG SUBLING
== END ==
LOC: M.ULTRA 15:30
DX: N92.0 Excessive and frequent menstruation with regular cycle (principal); R10.2 Pelvic and perineal pain; D64.9 Anemia, unspecified

== ENCOUNTER → 2018-10-18 | Day surgery (SDC) | payer BC, OTHER ==
[2018-10-18 13:58] LABS: HEMATOCRIT 30.3 % (37.0-47.0); HEMOGLOBIN 9.1 gm/dL (12.0-15.0)
[2018-10-24 07:12] LABS: STONE CA OXALATE MONOHYDRATE 90 % (()); STONE COLOR Brown (()); STONE COMMENT Note: (()); STONE WEIGHT 60.4 mg (())
--- NOTE | 2018-10-25 16:34 | OP ---
[address] [address] OPERATIVE REPORT Name: ANTHONY HUGHES Room: [employer].#: [id number] Admission: 10/18/18 Attend Phys: Queta Hernandez, Discharge: Date of : 84 Report #: [id number] THIS REPORT FOR: //name// CC: [facility] Queta Wright DATE OF SERVICE: 10/18/2018 PREOPERATIVE DIAGNOSIS: Indwelling left ureteral stent, right nephrolithiasis. POSTOPERATIVE DIAGNOSIS: Indwelling left ureteral stent, right nephrolithiasis. PROCEDURE: Cystourethroscopy, left stent removal, right retrograde pyelogram, right ureteroscopy, laser lithotripsy, basket extraction of stone fragments and right ureteral stent placement (6-Omani x 26 cm). SURGEON: Queta Hernandez MD ANESTHESIA: General. ESTIMATED BLOOD LOSS: None. COMPLICATIONS: None. SPECIMEN: Stone. INDICATIONS FOR PROCEDURE: The patient is a 38-year-old female with a long history of kidney stones. Last week, I took care of some left-sided stones that she had and that she was admitted for left flank pain. She also has some right renal nonobstructing stones, which she wanted addressed and I offered to do that at the same time, but she wanted to do things in a staged fashion. Therefore, today she presents for left stent removal and right ureteroscopy. Risks of procedure were discussed including not limited to infection, bleeding, injury to the urethra, bladder, ureter, need for secondary procedures, stent pain, cardiopulmonary complications. She voiced understanding and wished to proceed. DESCRIPTION OF PROCEDURE: After informed consent was obtained, the patient was taken back to the operating suite and placed supine. After induction of general anesthesia, she was placed in dorsal lithotomy position. Genitalia prepped and draped in standard fashion. Rigid cystoscopy was performed. The left stent curl was grasped and the stent was removed from the left side. The bladder was inspected and other than some mild edema around the left ureteral orifice. There were no other abnormalities. Retrograde was performed on the right side, which revealed normal ureter and collecting system. There were a few scattered radiopaque calcifications on x-ray on the right side. [place] [address] OPERATIVE REPORT Name: ANTHONY HUGHES Room: [facility]#: [id number] Admission: 10/18/18 Attend Phys: Queta Hernandez, Discharge: Date of : 84 Report #: [id number] threaded up into the kidney. Bladder was drained, scope was removed. A dual lumen catheter was used to place a second wire. An 02/13 ureteral access sheath was threaded over one of the wires to the level of the proximal ureter without difficulty. Flexible ureteroscope was advanced up into the kidney. A larger stone was encountered in the upper pole, probably about 7-8 mm. She also had a couple of very small stones adherent to some underlying papilla in the mid pole and then she had a larger stone in the lower pole probably the same size of 6-7 mm. Laser was used to break up any large stones and fragments were basketed with a 0 tip nitinol basket. The lower pole stone was more difficult to access as it was adherent to an anterior navjot, but I was able to dislodge the majority of this and remove it. Anything remaining was dust-like in size and should be passable. All calices were again inspected and I did not appreciate any large fragments. The scope was backed out along with the sheath and there was no injury from the sheath. The dual lumen catheter was used to perform retrograde again to delineate the collecting system for stent placement and there was no extravasation. Wire was backloaded through the cystoscope and a 6-Omani x 26-cm double-J stent was threaded over the wire. Good curl was seen within the renal pelvis and good curl was seen within the bladder under direct vision. The scope or the bladder was drained, scope was removed. A 5 mL of lidocaine jelly were placed per urethra for local anesthesia and a 60 mg B and O suppository was placed per rectum for postoperative discomfort. She was awoken, extubated and taken to recovery in satisfactory condition. She will be dismissed home and follow up with me in a week or two for stent removal. <ELECTRONICALLY SIGNED> By: Queta Hernandez MD 10/25/18 1634 1641 1655Queta Hernandez MD /nt
== END | disposition home or self-care (01) ==
LOC: M.SUR 09:51
PROVIDERS: Urology
DX: N20.0 Calculus of kidney (principal); Z98.890 Other specified postprocedural states; Z88.0 Allergy status to penicillin; Z79.899 Other long term (current) drug therapy; Z87.440 Personal history of urinary (tract) infections

== ENCOUNTER → 2019-06-05 | Outpatient (CLI) | payer OTHER | LOC: M.RAD 09:00 → M.CT 10:00 → M.RAD 10:00 | DX: M47.816 Spondylosis without myelopathy or radiculopathy, lumbar region (principal); N20.0 Calculus of kidney; N13.30 Unspecified hydronephrosis ==

== ENCOUNTER → 2019-09-16 | Outpatient (CLI) | payer OTHER | LOC: M.MRI 09-13 07:30 | PROVIDERS: ATTEND Nurse Practitioner Family | DX: M51.17 Intervertebral disc disorders with radiculopathy, lumbosacral region (principal); M48.07 Spinal stenosis, lumbosacral region ==

== ENCOUNTER 2020-02-18 08:53 | Emergency (ER) | payer OTHER ==
[~2020-02-18] VITALS: Ht 170.2 cm; Wt 90.7 kg
[~2020-02-18 08:53] MED LIST changes: -TIROSINT125 MCG PO; +TIROSINT150 MCG PO
[2020-02-18] MEDS ORDERED: CLONAZEPAM 0.50.5 M1 PO (09:18)
[2020-02-18] MEDS ORDERED: MACRODANTIN50 MG PO (09:18)
[2020-02-18 09:31] LABS: URINE BILIRUBIN NEGATIVE (Negative); URINE BLOOD NEGATIVE (Negative); URINE CLARITY CLEAR; URINE COLOR YELLOW; URINE GLUCOSE-RANDOM NEGATIVE (Negative); URINE KETONES TRACE (Negative); URINE LEUKOCYTES-REFLEX 1+ (Negative); URINE PROTEIN NEGATIVE (Negative); URINE SPECIFIC GRAVITY 1.025 (1.005-1.030); URINE UROBILINOGEN 0.2 E.U./dl (0.2-1.0)
[2020-02-18 09:41] LABS: URINE NITRITE-REFLEX POSITIVE (Negative)
[2020-02-18 09:51] LABS: BACTERIA-REFLEX >30 Many /HPF (None Seen); CASTS None Seen /LPF (None Seen); CRYSTALS None Seen /LPF (None Seen); MUCUS 0-3 Light strn/LPF (None Seen); SQUAMOUS 4-10 Moderate /LPF (0-3); URINE RBC 3-10 Few /HPF (0-2)
[2020-02-18 10:28] LABS: ABSOLUTE EOSINOPHILS 0.1 thou/uL (0.0-0.7); ABSOLUTE LYMPHOCYTES 0.8 thou/uL (0.8-5.3); ABSOLUTE MONOCYTES 0.3 thou/uL (0.0-1.2); ABSOLUTE NEUTROPHILS 2.2 thou/uL (1.6-8.1); BASOPHILS 0.9 %; EOSINOPHILS 1.8 %; HEMATOCRIT 36.1 % (37.0-47.0); HEMOGLOBIN 11.6 gm/dL (12.0-15.0); MCH 28.4 pg (26.0-34.0); MCHC 32.2 g/dL (28.0-37.0); MCV 88.4 fL (80.0-100.0); MONOCYTES 8.5 %; MPV 8.5 fl. (7.2-11.1); NUCLEATED RBCS 0 /100WBC; PLATELET COUNT* 218 thou/uL (150-400); POLYS 64.8 %; RBC 4.09 mil/uL (4.20-5.00); RDW-CV 14.3 % (10.5-14.5); WBC 3.4 thou/uL (4.0-11.0)
[2020-02-18 10:42] LABS: CREATININE 0.8 mg/dL (0.6-1.3)
[2020-02-18 10:45] LABS: POTASSIUM 2.8 mmol/L (3.5-5.1)
[2020-02-18 10:46] LABS: ALBUMIN 3.3 g/dL (3.4-5.0); TOTAL BILIRUBIN 0.3 mg/dL (<0.1-1.0); TOTAL PROTEIN 7.3 g/dL (6.4-8.2)
[2020-02-18 10:57] LABS: INFLUENZA A ANTIGEN Negative (Negative); INFLUENZA B ANTIGEN Negative (Negative)
[2020-02-18] MEDS ORDERED: BENTYL 20 MG TA20 M1 PO (13:10)
[2020-02-18] MEDS ORDERED: PHENERGAN 25 MG25 M1 PO (13:10)
[2020-02-18] MEDS ORDERED: CEFDINIR300 MG PO (13:10)
[2020-02-18 13:25] VITALS: BP 114/64
--- NOTE | 2020-02-19 17:14 | EKG ---
[place] [address] ELECTROCARDIOGRAM REPORT Name: SAULANTHONY Room: [facility]#: [id number] Admission: 02/18/20 Attend Phys: Discharge: 02/18/20 Date of : 84 Date of Service: 02/18/20 1054 Report #: [id number] THIS REPORT FOR: //name// [facility] ED Test Date: 2020-02-18 Test Time: 10:54:21 Pat Name: ANTHONY HUGHES Department: Room: Gender: F Appointment Manager: [facility] : 1980 Requested By: Mari Coronel Order Number: [id number] MD: Maksim Russo Measurements Intervals [place] Rate: 84 P: -20 PA: 158 QRS: 15 QRSD: 96 T: 18 QT: 392 QTc: 464 Interpretive Statements Sinus rhythm Abnormal R-wave progression, early transition Compared to ECG 06/05/2018 22:34:35 Sinus tachycardia no longer present T-wave abnormality no longer present Electronically Signed On 02-19-2020 17:14:24 [employer]NAG[employer]IST by Maksim Russo [email or web address] <ELECTRONICALLY SIGNED> By: Maksim Russo MD, FACC 02/19/20 1714 1054 1054 Maksim Russo MD, FAC /EPI
== END 2020-02-18 13:26 | disposition home or self-care (01) ==
LOC: M.ERS 08:53
PROVIDERS: Family Medicine; Nurse Practitioner Family
DX: B34.9 Viral infection, unspecified (principal); E87.6 Hypokalemia; N39.0 Urinary tract infection, site not specified; R19.7 Diarrhea, unspecified; Z20.828 Contact with and (suspected) exposure to other viral communicable diseases; I10 Essential (primary) hypertension; Z87.442 Personal history of urinary calculi; Z79.899 Other long term (current) drug therapy; Z79.2 Long term (current) use of antibiotics; Z88.0 Allergy status to penicillin

== ENCOUNTER 2020-05-26 07:39 | Emergency (ER) | payer OTHER ==
[~2020-05-26] VITALS: Ht 170.2 cm; Wt 88.9 kg
[~2020-05-26 07:39] MED LIST changes: +BENTYL 20 MG TA20 M1 PO; +CEFDINIR300 MG PO; +CLONAZEPAM 0.50.5 M1 PO; +MACRODANTIN50 MG PO; +PHENERGAN 25 MG25 M1 PO
[2020-05-26] MEDS ORDERED: ONDANSETRON ODT8 MG PO (07:54)
[2020-05-26 08:06] LABS: URINE BILIRUBIN NEGATIVE (Negative); URINE BLOOD NEGATIVE (Negative); URINE CLARITY CLEAR; URINE COLOR YELLOW; URINE GLUCOSE-RANDOM NEGATIVE (Negative); URINE KETONES NEGATIVE (Negative); URINE LEUKOCYTES 1+ (Negative); URINE NITRITE NEGATIVE (Negative); URINE PROTEIN NEGATIVE (Negative); URINE SPECIFIC GRAVITY 1.025 (1.005-1.030); URINE UROBILINOGEN 0.2 E.U./dl (0.2-1.0)
[2020-05-26 08:13] LABS: ABSOLUTE EOSINOPHILS 0.1 thou/uL (0.0-0.7); ABSOLUTE LYMPHOCYTES 1.8 thou/uL (0.8-5.3); ABSOLUTE MONOCYTES 0.3 thou/uL (0.0-1.2); ABSOLUTE NEUTROPHILS 2.6 thou/uL (1.6-8.1); BASOPHILS 0.9 %; EOSINOPHILS 3.1 %; HEMOGLOBIN 10.8 gm/dL (12.0-15.0); LYMPHOCYTES 36.8 %; MCH 26.7 pg (26.0-34.0); MCHC 31.7 g/dL (28.0-37.0); MCV 84.3 fL (80.0-100.0); MONOCYTES 6.2 %; MPV 7.9 fl. (7.2-11.1); NUCLEATED RBCS 0 /100WBC; PLATELET COUNT* 267 thou/uL (150-400); RBC 4.04 mil/uL (4.20-5.00); RDW-CV 14.9 % (10.5-14.5); WBC 4.8 thou/uL (4.0-11.0)
[2020-05-26 08:23] LABS: BACTERIA 1-9 Few /HPF (None Seen); SQUAMOUS >10 Many /LPF (0-3); URINE RBC 0-2 Rare /HPF (0-2); URINE WBC 6-15 Few /HPF (0-5)
[2020-05-26 08:24] LABS: CASTS None Seen /LPF (None Seen); CRYSTALS None Seen /LPF (None Seen)
[2020-05-26 08:27] LABS: CALCIUM 8.7 mg/dL (8.5-10.1); CREATININE 0.8 mg/dL (0.6-1.3)
[2020-05-26 08:32] LABS: ALBUMIN 3.2 g/dL (3.4-5.0); DIRECT BILIRUBIN 0.2 mg/dL (<0.1-0.3); TOTAL BILIRUBIN 0.3 mg/dL (<0.1-1.0); TOTAL PROTEIN 6.8 g/dL (6.4-8.2)
[2020-05-26] MEDS ORDERED: HYDROCODON-ACE1 EAC5 PO (09:45)
[2020-05-26] MEDS ORDERED: NAPROSYN500 MG PO (09:45)
[2020-05-26] MEDS ORDERED: MACROBID 100 M100 M1 PO (09:45)
[2020-05-26] MEDS ORDERED: ZOFRAN ODT4 MG PO (09:46)
[2020-05-26] MEDS ORDERED: KEFLEX500 M1 PO (09:59)
[2020-05-26 10:02] VITALS: BP 98/78
== END 2020-05-26 10:02 | disposition home or self-care (01) ==
LOC: M.ERS 07:39
PROVIDERS: Emergency Medicine
DX: N30.90 Cystitis, unspecified without hematuria (principal); I10 Essential (primary) hypertension; G89.29 Other chronic pain; E03.9 Hypothyroidism, unspecified; Z87.442 Personal history of urinary calculi; Z88.0 Allergy status to penicillin; Z87.440 Personal history of urinary (tract) infections

== ENCOUNTER → 2020-06-17 | Outpatient (CLI) | payer OTHER ==
[~2020-06-17] MED LIST changes: +HYDROCODON-ACE1 EAC5 PO; +MACROBID 100 M100 M1 PO; +NAPROSYN500 MG PO; +ONDANSETRON ODT8 MG PO; +ZOFRAN ODT4 MG PO
== END ==
LOC: M.ULTRA 08:53
PROVIDERS: ATTEND Nurse Practitioner Family
DX: N83.02 Follicular cyst of left ovary (principal); N83.01 Follicular cyst of right ovary

== ENCOUNTER 2020-11-29 07:46 | Emergency (ER) | payer OTHER ==
[~2020-11-29] VITALS: Ht 170.2 cm; Wt 89.8 kg
[2020-11-29] MEDS ORDERED: DRIZALMA SPRINK40 MG PO (07:57)
[2020-11-29] MEDS ORDERED: CYMBALTA30 MG PO (07:57)
[2020-11-29] MEDS ORDERED: HYDROCHLOROTHIA25 M1 PO (07:58)
[2020-11-29] MEDS ORDERED: ABILIFY 5 MG TAB5 MG PO (07:58)
[2020-11-29] MEDS ORDERED: OMEPRAZOLE40 MG PO ×2 (07:58)
[2020-11-29 08:37] LABS: URINE BILIRUBIN NEGATIVE (Negative); URINE BLOOD NEGATIVE (Negative); URINE CLARITY CLEAR; URINE COLOR YELLOW; URINE GLUCOSE-RANDOM NEGATIVE (Negative); URINE KETONES NEGATIVE (Negative); URINE LEUKOCYTES-REFLEX NEGATIVE (Negative); URINE NITRITE-REFLEX NEGATIVE (Negative); URINE PROTEIN NEGATIVE (Negative); URINE SPECIFIC GRAVITY 1.025 (1.005-1.030); URINE UROBILINOGEN 0.2 E.U./dl (0.2-1.0)
[2020-11-29 08:39] LABS: ABSOLUTE BASOPHILS 0.1 thou/uL (0.0-0.2); ABSOLUTE EOSINOPHILS 0.1 thou/uL (0.0-0.7); ABSOLUTE LYMPHOCYTES 1.4 thou/uL (0.8-5.3); ABSOLUTE MONOCYTES 0.3 thou/uL (0.0-1.2); BASOPHILS 1.3 %; HEMATOCRIT 34.9 % (37.0-47.0); HEMOGLOBIN 10.9 gm/dL (12.0-15.0); LYMPHOCYTES 28.5 %; MCH 25.4 pg (26.0-34.0); MCHC 31.2 g/dL (28.0-37.0); MCV 81.3 fL (80.0-100.0); MONOCYTES 6.8 %; MPV 9.3 fl. (7.2-11.1); NUCLEATED RBCS 0 /100WBC; PLATELET COUNT* 222 thou/uL (150-400); POLYS 60.4 %; RBC 4.29 mil/uL (4.20-5.00); RDW-CV 14.8 % (10.5-14.5); WBC 4.9 thou/uL (4.0-11.0)
[2020-11-29 08:50] LABS: CALCIUM 8.4 mg/dL (8.5-10.1); CREATININE 0.9 mg/dL (0.6-1.3)
[2020-11-29 08:55] LABS: ALBUMIN 3.6 g/dL (3.4-5.0); TOTAL BILIRUBIN 0.3 mg/dL (<0.1-1.0)
--- NOTE | 2020-11-29 09:10 | EKG ---
[place] [address] ELECTROCARDIOGRAM REPORT Name: ANTHONY HUGHES Room: [facility]#: [id number] Admission: 11/29/20 Attend Phys: Discharge: Date of : 84 Date of Service: 11/29/20 0840 Report #: [id number] THIS REPORT FOR: //name// 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: : 1980 Requested By: Jonh Woodard Order Number: [id number] MD: Minh Pacheco Measurements Intervals [place] Rate: 95 P: -24 IN: 138 QRS: 30 QRSD: 69 T: 38 QT: 344 QTc: 433 Interpretive Statements Sinus rhythm Low voltage, precordial leads Abnormal R-wave progression, early transition Compared to ECG 02/18/2020 10:54:21 Low QRS voltage now present Electronically Signed On 11-29-2020 9:10:44 CDT by Minh Pacheco [email or web address] <ELECTRONICALLY SIGNED> By: Minh Pacheco MD, [facility] 11/29/20 0910 9 Minh Pacheco MD, [facility] /EPI
[2020-11-29] MEDS ORDERED: ZOFRAN ODT4 MG DISSOLVE (09:51)
[2020-11-29] MEDS ORDERED: HYDROCODON-ACE1 EAC7 PO (09:51)
[2020-11-29 10:14] VITALS: BP 112/63
== END 2020-11-29 10:16 | disposition home or self-care (01) ==
LOC: M.ERS 07:46
PROVIDERS: Family Medicine
DX: B34.9 Viral infection, unspecified (principal); Z20.822 Contact with and (suspected) exposure to COVID-19; R19.7 Diarrhea, unspecified; R11.2 Nausea with vomiting, unspecified; I10 Essential (primary) hypertension; E03.9 Hypothyroidism, unspecified; F32.9 Major depressive disorder, single episode, unspecified; F41.9 Anxiety disorder, unspecified; Z79.899 Other long term (current) drug therapy; Z79.2 Long term (current) use of antibiotics; Z88.0 Allergy status to penicillin

== ENCOUNTER 2021-02-04 07:07 | Emergency (ER) | payer OTHER ==
[~2021-02-04] VITALS: Ht 170.2 cm; Wt 91.6 kg
[~2021-02-04 07:07] MED LIST changes: +ABILIFY 5 MG TAB5 MG PO; +CYMBALTA30 MG PO; +DRIZALMA SPRINK40 MG PO; +HYDROCHLOROTHIA25 M1 PO; +OMEPRAZOLE40 MG PO; +ZOFRAN ODT4 MG DISSOLVE
[2021-02-04] MEDS ORDERED: PERCOCET 5-3251 EACH PO (07:23)
[2021-02-04 07:37] LABS: URINE BILIRUBIN NEGATIVE (Negative); URINE BLOOD NEGATIVE (Negative); URINE CLARITY SL CLOUDY; URINE COLOR YELLOW; URINE GLUCOSE-RANDOM NEGATIVE (Negative); URINE KETONES NEGATIVE (Negative); URINE LEUKOCYTES-REFLEX NEGATIVE (Negative); URINE NITRITE-REFLEX NEGATIVE (Negative); URINE PROTEIN NEGATIVE (Negative)
[2021-02-04 07:43] LABS: SQUAMOUS >10 Many /LPF (0-3); URINE WBC-REFLEX 0-5 Rare /HPF (0-5)
[2021-02-04 07:44] LABS: BACTERIA-REFLEX None Seen /HPF (None Seen); MUCUS None Seen strn/LPF (None Seen); URINE RBC None Seen /HPF (0-2)
[2021-02-04 07:48] LABS: ABSOLUTE EOSINOPHILS 0.1 thou/uL (0.0-0.7); ABSOLUTE LYMPHOCYTES 1.3 thou/uL (0.8-5.3); ABSOLUTE MONOCYTES 0.3 thou/uL (0.0-1.2); ABSOLUTE NEUTROPHILS 2.8 thou/uL (1.6-8.1); HEMATOCRIT 31.9 % (37.0-47.0); LYMPHOCYTES 28.4 %; MCHC 31.4 g/dL (28.0-37.0); MCV 79.6 fL (80.0-100.0); MONOCYTES 5.6 %; MPV 8.7 fl. (7.2-11.1); NUCLEATED RBCS 0 /100WBC; PLATELET COUNT* 257 thou/uL (150-400); RBC 4.01 mil/uL (4.20-5.00); WBC 4.5 thou/uL (4.0-11.0)
[2021-02-04 07:54] LABS: CREATININE 0.8 mg/dL (0.6-1.3); POTASSIUM 3.7 mmol/L (3.5-5.1)
[2021-02-04 07:59] LABS: ALBUMIN 2.9 g/dL (3.4-5.0); TOTAL BILIRUBIN 0.3 mg/dL (<0.1-1.0); TOTAL PROTEIN 6.1 g/dL (6.4-8.2)
[2021-02-04] MEDS ORDERED: BENTYL 10 MG CA10 M1 PO (08:42)
[2021-02-04] MEDS ORDERED: PHENERGAN 25 MG25 M1 PO (08:42)
[2021-02-04] MEDS ORDERED: NORCO5 PO (08:42)
[2021-02-04 08:54] VITALS: BP 124/68
== END 2021-02-04 08:54 | disposition home or self-care (01) ==
LOC: M.ERS 07:07
PROVIDERS: Emergency Medicine
DX: R10.32 Left lower quadrant pain (principal); R11.0 Nausea; I10 Essential (primary) hypertension; F32.9 Major depressive disorder, single episode, unspecified; F41.9 Anxiety disorder, unspecified; E03.9 Hypothyroidism, unspecified; Z79.899 Other long term (current) drug therapy; Z88.0 Allergy status to penicillin